=== PATIENT | male | born 1975 | race Two or more races ===

== ENCOUNTER 2021-01-26 22:17 | Emergency (ER) | payer SELFPAY ==
[~2021-01-26] VITALS: Ht 175.3 cm; Wt 66.0 kg
[2021-01-26 22:29] VITALS: BP 122/77
--- NOTE | 2021-01-26 22:48 | NUR ---
PATIENT AMBULATING IN ROOM WITH STEADY GAIT. TAKES HIS SHOES OFF ON OWN AND POINTS TO HIS TOES ON RIGHT FOOT STATING "I NEED MEDICINE FOR MY COLD TOES". PATIENT UNABLE TO TELL ME A MEDICINE NAME HE IS UNSURE OF THE NAME. CALL MANDUJANO IN REACH. SAFETY MAINTAINED
--- NOTE | 2021-01-26 23:00 | NUR ---
DISCHARGE INSTRUCTIONS REVIEWED WITH PATIENT. NO FURTHER QUESTIONS. 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 BANDAID PROVIDED. STEADY GAIT IN ROOM. BUS PASS REQUESTED AND PROVIDED TO PATIENT. ALL PERSONAL BELONGINGS WITH PATIENT ON DEPARTURE. PATIENT NEEDED MULTIPLE REQUESTS BY NURSE TO DEPART TO LOBBY. NO IV PLACED DURING THIS ER VISIT
== END 2021-01-26 23:22 | disposition home or self-care (01) ==
LOC: ED 23:05
DX: M79.671 Pain in right foot (principal); G89.29 Other chronic pain
CPT/HCPCS: 99281